=== PATIENT | female | born 1990 | race Caucasian/White ===

== ENCOUNTER 2016-07-02 20:24 | Emergency (ER) | payer OTHER ==
[~2016-07-02 20:24] MED LIST: COLACE 100MG C100 MG PO
== END 2016-07-02 23:11 | disposition home or self-care (01) ==
LOC: ER1 20:24
DX: J40 Bronchitis, not specified as acute or chronic (principal); F41.9 Anxiety disorder, unspecified; F17.210 Nicotine dependence, cigarettes, uncomplicated
CPT/HCPCS: 99283

== ENCOUNTER 2020-03-11 12:17 | Observation (INO) | payer OTHER ==
[~2020-03-11] VITALS: Ht 162.6 cm; Wt 86.2 kg
[~2020-03-11 12:17] MED LIST changes: +LODINE CAP 300300 MG PO; +PENVEE K 500 M500 MG PO; +ZOFRAN ODT 4 MG4 MG PO
[2020-03-11 13:09] LABS: HEMOGLOBIN 12.6 gm/dl (12.3-15.3); RED BLOOD COUNT 4.39 M/UL (4.00-5.10); WHITE BLOOD COUNT 8.4 K/UL (4.5-11.0)
[2020-03-11 13:29] LABS: BUN/CREATININE RATIO 10 (0-10)
[2020-03-12 14:52] LABS: RED BLOOD COUNT 4.16 M/UL (4.00-5.10); WHITE BLOOD COUNT 9.7 K/UL (4.5-11.0)
[2020-03-12 15:11] LABS: BUN/CREATININE RATIO 13 (0-10)
== END 2020-03-12 16:43 | disposition home or self-care (01) ==
LOC: GENOP 12:17 → OB 15:46
PROVIDERS: ADMIT Obstetrics & Gynecology
DX: O99.613 Diseases of the digestive system complicating pregnancy, third trimester (principal); K85.90 Acute pancreatitis without necrosis or infection, unspecified; Z3A.35 35 weeks gestation of pregnancy; Z20.822 Contact with and (suspected) exposure to COVID-19
CPT/HCPCS: 36415; 76705; 80053; 81001; 82150; 82550; 82553; 82570; 83615; 83690; 84156; 84484; 84550; 85025; 87635; 93005; C9113; G0378; J1170; J2060; J7120

== ENCOUNTER 2020-03-25 07:31 | Inpatient (IN) | payer OTHER ==
[~2020-03-25] VITALS: Ht 162.6 cm; Wt 108.4 kg
[2020-03-25 09:21] LABS: HEMOGLOBIN 11.6 gm/dl (12.3-15.3); RED BLOOD COUNT 4.28 M/UL (4.00-5.10); WHITE BLOOD COUNT 9.3 K/UL (4.5-11.0)
[2020-03-25] MEDS ORDERED: PROTONIX40 MG PO (09:53)
[2020-03-25] MEDS ORDERED: PEPCID AC10 MG PO (09:53)
[2020-03-25] MEDS ORDERED: PRENATAL VITAM1 EAC3 PO (09:54)
[2020-03-25] MEDS ORDERED: HYDROXYZINE HCL25 MG PO (09:54)
[2020-03-26 07:10] LABS: HEMOGLOBIN 11.1 gm/dl (12.3-15.3)
[2020-03-26] MEDS ORDERED: PERCOCET 5/325 T1 EA PO (18:43)
[2020-03-26] MEDS ORDERED: COLACE 100MG C100 MG PO (18:43)
[2020-03-26] MEDS ORDERED: ANAPROX DS550 MG PO (18:43)
== END 2020-03-26 20:16 | disposition home or self-care (01) | DRG 788 ==
LOC: OB 07:31
PROVIDERS: ADMIT Obstetrics & Gynecology
PROC: 4A1HX4Z Monitoring of Products of Conception, Cardiac Electrical Activity, External Approach (ICD-10-PCS; 2020-03-25)
PROC: 10D00Z1 Extraction of Products of Conception, Low, Open Approach (ICD-10-PCS; principal; 2020-03-25 09:15)
DX: O34.211 Maternal care for low transverse scar from previous cesarean delivery (principal); N85.8 Other specified noninflammatory disorders of uterus; Z3A.37 37 weeks gestation of pregnancy; Z37.0 Single live birth; O14.94 Unspecified pre-eclampsia, complicating childbirth; O32.1XX0 Maternal care for breech presentation, not applicable or unspecified; O99.02 Anemia complicating childbirth; Z20.822 Contact with and (suspected) exposure to COVID-19
CPT/HCPCS: 81001; 82800; 85014; 85018; 85025; C9113; J0690; J1200; J1885; J2274; J2300; J2405; J2590; J2795; J3010; J7120

== ENCOUNTER 2021-04-28 13:13 | Emergency (ER) | payer OTHER ==
[~2021-04-28 13:13] MED LIST changes: +ANAPROX DS550 MG PO; +HYDROXYZINE HCL25 MG PO; +PEPCID AC10 MG PO; +PERCOCET 5/325 T1 EA PO; +PRENATAL VITAM1 EAC3 PO; +PROTONIX40 MG PO
[2021-04-28 15:59] LABS: HEMOGLOBIN 11.6 gm/dl (12.3-15.3); RED BLOOD COUNT 4.04 M/UL (4.00-5.10); WHITE BLOOD COUNT 5.8 K/UL (4.5-11.0)
[2021-04-28 16:25] LABS: BUN/CREATININE RATIO 15 (0-10)
== END 2021-04-28 17:15 | disposition home or self-care (01) ==
LOC: ER1 13:13
PROVIDERS: Physician Assistant Medical
DX: R07.89 Other chest pain (principal); F17.210 Nicotine dependence, cigarettes, uncomplicated
CPT/HCPCS: 71045; 80053; 81001; 82550; 82553; 83880; 84439; 84443; 84484; 85025; 93005; 99285

== ENCOUNTER 2021-05-23 21:32 | Emergency (ER) | payer OTHER ==
[2021-05-23] MEDS ORDERED: IBU600 MG PO (22:28)
== END 2021-05-23 23:09 | disposition home or self-care (01) ==
LOC: ER1 21:32
DX: S67.22XA Crushing injury of left hand, initial encounter (principal); F17.210 Nicotine dependence, cigarettes, uncomplicated; I10 Essential (primary) hypertension; E78.5 Hyperlipidemia, unspecified; W23.0XXA Caught, crushed, jammed, or pinched between moving objects, initial encounter; Y92.009 Unspecified place in unspecified non-institutional (private) residence as the place of occurrence of the external cause
CPT/HCPCS: 73130; 96372; 99283; J0780; J1885

== ENCOUNTER 2021-05-28 21:00 | Emergency (ER) | payer OTHER ==
[~2021-05-28 21:00] MED LIST changes: +IBU600 MG PO
[2021-05-28] MEDS ORDERED: TORADOL 10 MG T10 MG PO (22:01)
[2021-05-28] MEDS ORDERED: IMITREX50 MG PO (22:01)
== END 2021-05-28 22:36 | disposition home or self-care (01) ==
LOC: ER1 21:00
DX: S60.222A Contusion of left hand, initial encounter (principal); G43.909 Migraine, unspecified, not intractable, without status migrainosus; F17.200 Nicotine dependence, unspecified, uncomplicated; W19.XXXA Unspecified fall, initial encounter; Y92.009 Unspecified place in unspecified non-institutional (private) residence as the place of occurrence of the external cause
CPT/HCPCS: 73130; 96372; 99283; J1885; J3030

== ENCOUNTER 2021-06-12 08:22 | Emergency (ER) | payer OTHER ==
[~2021-06-12 08:22] MED LIST changes: +IMITREX50 MG PO; +TORADOL 10 MG T10 MG PO
[2021-06-12 09:23] LABS: HEMOGLOBIN 12.7 gm/dl (12.3-15.3); RED BLOOD COUNT 4.45 M/UL (4.00-5.10); WHITE BLOOD COUNT 13.1 K/UL (4.5-11.0)
[2021-06-12 09:45] LABS: BUN/CREATININE RATIO 10 (0-10)
[2021-06-12] MEDS ORDERED: BENZONATATE200 MG PO (11:52)
[2021-06-12] MEDS ORDERED: AEROCHAMBER1 EA XX (11:52)
[2021-06-12] MEDS ORDERED: PROVENTIL HFA6.7 GM INH (11:52)
== END 2021-06-12 12:02 | disposition home or self-care (01) ==
LOC: ER1 08:22
PROVIDERS: Family Medicine
DX: D25.9 Leiomyoma of uterus, unspecified (principal); R05.9 Cough, unspecified; F17.290 Nicotine dependence, other tobacco product, uncomplicated; Z20.822 Contact with and (suspected) exposure to COVID-19
CPT/HCPCS: 0240U; 71045; 80053; 81001; 83690; 84703; 85025; 99284; Q9967

== ENCOUNTER 2021-09-11 13:59 | Emergency (ER) | payer OTHER ==
[~2021-09-11 13:59] MED LIST changes: +AEROCHAMBER1 EA XX; +BENZONATATE200 MG PO; +PROVENTIL HFA6.7 GM INH
[2021-09-11] MEDS ORDERED: IBUPROFEN600 MG PO (15:04)
[2021-09-11] MEDS ORDERED: AMOX TR-K CLV1 EAC4 PO ×2 (15:04)
== END 2021-09-11 15:14 | disposition home or self-care (01) ==
LOC: ER1 13:59
DX: K08.89 Other specified disorders of teeth and supporting structures (principal)
CPT/HCPCS: 96372; 99282; J1885

== ENCOUNTER 2021-09-16 12:04 | Emergency (ER) | payer OTHER ==
[~2021-09-16 12:04] MED LIST changes: +AMOX TR-K CLV1 EAC4 PO; +IBUPROFEN600 MG PO
[2021-09-16 14:19] LABS: HEMOGLOBIN 12.3 gm/dl (12.3-15.3); RED BLOOD COUNT 4.21 M/UL (4.00-5.10); WHITE BLOOD COUNT 5.7 K/UL (4.5-11.0)
[2021-09-16 14:36] LABS: BUN/CREATININE RATIO 18 (0-10)
[2021-09-16] MEDS ORDERED: AMOXICILLIN500 M1 PO (17:14)
== END 2021-09-16 17:20 | disposition home or self-care (01) ==
LOC: ER1 12:04
PROVIDERS: Emergency Medicine
DX: R10.9 Unspecified abdominal pain (principal); R30.0 Dysuria; R68.84 Jaw pain; F17.200 Nicotine dependence, unspecified, uncomplicated
CPT/HCPCS: 80053; 81001; 84703; 85025; 87086; 96374; 96375; 99284; J2270; J2405

== ENCOUNTER 2021-10-02 23:59 | Emergency (ER) | payer OTHER ==
[~2021-10-02 23:59] MED LIST changes: +AMOXICILLIN500 M1 PO
[2021-10-03 00:34] LABS: HEMOGLOBIN 13.2 gm/dl (12.3-15.3); RED BLOOD COUNT 4.53 M/UL (4.00-5.10); WHITE BLOOD COUNT 9.6 K/UL (4.5-11.0)
[2021-10-03 01:02] LABS: BUN/CREATININE RATIO 14 (0-10)
[2021-10-03] MEDS ORDERED: DIFLUCAN100 MG PO (04:04)
[2021-10-04 21:17] LABS: CHLAMYDIA TRACHOMATIS, NAA Negative (Negative); NEISSERIA GONORRHOEAE, NAA Negative (Negative)
== END 2021-10-03 05:00 | disposition home or self-care (01) ==
LOC: ER1 23:59
DX: K59.00 Constipation, unspecified (principal); B37.9 Candidiasis, unspecified; K21.9 Gastro-esophageal reflux disease without esophagitis; F17.210 Nicotine dependence, cigarettes, uncomplicated
CPT/HCPCS: 80053; 81001; 83690; 84703; 85025; 99284